=== PATIENT | male | born 1950 | race Caucasian/White ===

== ENCOUNTER 2024-07-02 11:42 | Outpatient (CLI) | payer MEDICARE, OTHER, SELFPAY ==
[2024-07-02] VITALS (24 sets, daily range): BP systolic 92–183; BP diastolic 45–81; PULSE 48–69; RESP 12–83; TEMP 36.7; O2SAT 95–100
--- NOTE | 2024-07-02 | PATH_ITS ---
[facility] Accession Number: [id number] No. of containers..04 Tissue . 01 Material submitted: . PART A: bone marrow - BONE MARROW ASPIRATION PART B: bone marrow - BONE MARROW CORE PART C: bone marrow - BONE MARROW CORE PART D: bone marrow - BONE MARROW CORE . 01 Diagnosis: BONE MARROW, ASPIRATE, CLOT, AND BIOPSY: Variably cellular marrow for the age (30-70%) in suboptimal biopsy for cellularity assessment. Trilineage left shifted hematopoiesis, adequate maturation, with proportional increased erythropoiesis with decreased megakaryopoiesis with atypical megakaryocytes forms, no definite dysplasia. Blasts: 4% by differential count. Hematogone hyperplasia. Scattered small lymphoid aggregates seen in suboptimal biopsy, not diagnostic for B cell lymphoma by morphology or immune stains. Negative for carcinoma. Storage iron is present with no ring sideroblasts seen. No increased reticulin fibrosis seen. Chromosomal analysis is pending. FISH for MDS panel is pending. PCR for IGH/IGK gene rearrangement is pending. See comment. . COMMENT: Flow cytometry of the concurrent bone marrow aspirate specimen shows: Small monotypic B-cell population present (CD5 negative, CD10 partial dim expression), which is similar to the population found in peripheral blood in previous flow cytometry evaluation. Increased hematogone population 7% of total events. No increased or aberrant blasts. (see flow report for more details [phone] and [phone]). Overall evaluation of morphology and immunophenotype of bone marrow shows left shifted marrow elements with decreased megakaryopoiesis with subset of atypical megakaryocytes seen, not diagnostic for dysplasia in suboptimal sample. Small lymphoid aggregates (with mixed T and B cells) are seen, in crushed suboptimal materials, not diagnostic for lymphoma. Although flow cytometry shows minute monotypic B cells population in bone marrow aspirate, however this population was also seen in peripheral blood therefore potential peripheral blood aspiration artifact cannot be ruled out in this specimen. Evaluation for lymphadenopathy (and obtain lymph node biopsy) or repeat bone marrow biopsy might be warranted for better assessment for lymphoma. Correlation with ordered chromosomal analysis, FISH for MDS, and PCR for IGH/IGK gene rearrangement is recommended for final interpretation. TXN 07/06/2024 1515 Local . 01 Electronically signed: . Tatonya Rubio MD, Pathologist NPI- [id number] . 01 Gross description: . A. Received in formalin with two patient identifiers and #1, are multiple red-brown fragments of hemorrhagic material aggregating to 2.1 x 0.9 x 0.1 cm. Filtered and submitted entirely in A1. B. Received in formalin with two patient identifiers and #2, are multiple fragments of osseous tissue aggregating to 0.8 x 0.7 x 0.2 cm. Filtered and submitted entirely in B1 following decalcification in Immunocal. C. Received in formalin with two patient identifiers and #3, are multiple acosta fragments of osseous tissue aggregating to 0.5 x 0.4 x 0.2 cm. Filtered and submitted entirely in C1 following decalcification in Immunocal. D. Received in formalin with two patient identifiers and no site on jar, are multiple fragments of osseous tissue aggregating to 0.6 x 0.3 x 0.2 cm. Filtered and submitted entirely in D1 following decalcification in Immunocal. ([id number]) /MRV 07/03/2024 1831 Local . 01 Microscopic: . 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 - PERIPHERAL BLOOD SMEAR: Not provided. HEMOGRAM (Per report dated 07/02/2024): WBC: 3.3x K/uL RBC: 4.0x K/uL HGB: 11.6g/dL HCT: 35.5% MCV: 87.1fL RDW: 18.6% PLT: 73x K/uL - BONE MARROW ASPIRATE SMEAR AND TOUCH PREPARATION: The aspirate is suboptimal for evaluation due hemodilution artifact, and lack of spicules. Touch preparations are adequate. Erythroid series: Present with progressive maturation, slightly left shifted. No definite dysplasia. Myeloid series: Present with left shift and unremarkable morphology. No evidence of dysplasia. Blasts are slightly increased 5%. Megakaryocytes: Present with unremarkable morphology. - BONE MARROW ASPIRATE SMEAR AND TOUCH PREPARATION MANUAL DIFFERENTIAL (200 CELLS COUNTED ON ASPIRATES and TOUCH PREPARATION): - BLASTS: 4.0% . GRANULOCYTIC SERIES: 40% Promyelocytes: 0% Neutrophilic myelocytes and metamyelocytes: 18% Segmented neutrophils and bands: 18% Eosinophils and its precursors: 3.5% Basophils and its precursors: 0.5% . ERYTHROCYTIC SERIES: 33.5% Pronormoblasts: 2% Other normoblasts: 31.5% . OTHER SERIES: 22.5% Lymphocytes: 21.0% Monocytes: 1.5% Plasma cells: 0% - BONE MARROW BIOPSY AND CLOT: Marrow biopsy is suboptimal, mostly composed of fragments of bone with occasional marrow spaces. Clot is suboptimal, predominantly composed of blood clot, and rare marrow spaces seen. M:E ratio: 1:1 by immune stains. Cellularity: Fragmented marrow biopsy suboptimal for cellularity assessment with variable cellularity range between 30-70%. Megakaryocytes: Decreased with subset has atypical morphology. Other findings: No increased numbers of immature cells, or granulomas are identified. - IMMUNOHISTOCHEMICAL STAINS ARE PERFORMED ON CORE BIOPSY TO BETTER ASSESS MARROW ELEMNTS WITH APPROPRIATE CONTROLS: CD138 shows scattered and perivascular plasma cells less than 5% of marrow cellularity and are polyclonal for kappa and lambda light chains by immune histochemical stains. CD34 shows no increased in myeloid blasts population 3%. CD117 shows increased scattered mast cells 2%, no mast cells aggregate seen. CD15 highlights proportional decreased myeloid elements. CD71 highlights erythroid elements. FACTORVIII highlights decreased megakaryocytes with subset has atypical morphology (microforms, and hypo lobulated forms) in suboptimal sample. CD3 and CD5: Highlights scattered and lymphoid aggregate of unremarkable T cells. CD20 and CD79a: Highlight scattered and occasional small aggregates of B cells. PAX5: Highlights scattered and small aggregates of B cells, and increased hematogne population. Cyclin D1 is negative in lymphocytes. BCL2: Highlights T cells. BCL6: Is negative. EMILY keratin: Is negative -- SPECIAL STAINS PERFORMED ON ASPIRATE, CLOT, AND CORE BIOPSY WITH APPROPRIATE CONTROLS: Iron special stain (clot and aspirate): Iron stainable particles are present with no ring sideroblast seen on clot sections. Reticulin special stain (core biopsy): No increased reticulin fibrosis . 01 Pathologist provided ICD-10: D69.6 . 01 CPT . 270537, 421918, 078378, 659784, 851096, 781155, 085935, 21946, 648333, 837273, 159819, 286427, [id number], [id number] Specimen Comment: A courtesy copy of this report has been sent to [facility], Specimen Comment: [phone] Performed at: [address] [id number] MD Paul Schuler MD Phone: [phone]
--- NOTE | 2024-07-02 11:45 | DI.CT.S_ITS ---
PROCEDURE: CT BIOPSY BONE DEEP Sedation analgesia for 21 minutes. INDICATIONS: SPLENOMEGALY,B-CELL LYMPHOMA,PANCYTOPENIA TECHNIQUE: The indications, alternatives, benefits, risks, and possible complications of the procedure were communicated to the patient. Informed written consent from the patient was obtained and placed in the chart. Continuous EKG and hemodynamic monitoring was started by trained personnel. The patient was brought to the CT suite and extruding press adjuster spiral CT imaging was performed with localization grid. The appropriate site for percutaneous access to the biopsy target was marked, was prepped and draped in a sterile fashion. Next, adequate local anesthesia and periosteal anaesthesia was achieved with 1% lidocaine and 0.5% bupivacaine. Under CT guidance, an 11 gauge core biopsy trocar and needle set was advanced to the biopsy target, and specimen(s) were obtained. The trocar and needle were then removed, and the patient was sent for post-procedure monitoring. COMPARISON: [place], [place], [place] PET CT FUSION SKULL 2 THIGH, 06/20/2024, 11:50. FINDINGS: Biopsy site: Right posterior iliac crest Needle: 11 gauge biopsy needle with introducer trocar. Number of passes: 4 Medications: 1% lidocaine for local anaesthesia. IV Fentanyl and Versed for conscious sedation for 21 minutes (see nursing record). Complications: None. IMPRESSION: Successful CT-guided biopsy of right posterior iliac crest. Dictated by: Mustapha Hansen M.D. on 07/04/2024 at 8:19 Approved by: Mustapha Hansen M.D. on 07/04/2024 at 8:21
[2024-07-02 12:50] LABS: Hematocrit 35.5 % (41-53); Hemoglobin 11.6 g/dL (13.5-17.5); Mean Corpuscular HGB Conc 32.8 % (30-36); Mean Corpuscular Hemoglobin 28.6 PG (26-34); Mean Corpuscular Volume 87.1 fL (80-100); Platelet Count 73 X10^3/uL (150-400); Red Blood Cell Count 4.07 X10^6/uL (4.5-5.9); Red Cell Distribution Width 18.6 % (11.6-14.8); White Blood Cell Count 3.3 X10^3/uL (4.5-11.0)
[2024-07-02 12:58] LABS: INR 1.1 (0.9-1.3); Prothrombin Time 12.7 SECONDS (9.4-12.5)
[2024-07-02] MEDS: MIDAZOLAM 2 MG/2 ML VIAL 1 MG IV (13:53)
[2024-07-02] MEDS: LIDOCAINE 1% 20 ML 15 ML INJ (13:55)
[2024-07-02] MEDS: BUPIVACAINE 0.5% MDV 50 ML INJ (13:56)
[2024-07-02] MEDS: fentaNYL 100 MCG/2 ML INJ 25 MCG IV (15:08)
== END 2024-07-02 14:35 | disposition home or self-care (01) ==
LOC: CT 11:44
PROVIDERS: Radiology Diagnostic Radiology; Referring Provider Internal Medicine Medical Oncology; Visit Provider Internal Medicine Medical Oncology
DX: C18.9 Malignant neoplasm of colon, unspecified (principal); C64.1 Malignant neoplasm of right kidney, except renal pelvis; C85.10 Unspecified B-cell lymphoma, unspecified site; D69.6 Thrombocytopenia, unspecified; R16.1 Splenomegaly, not elsewhere classified; D61.818 Other pancytopenia
CPT/HCPCS: 20225; 77012; 85027; 85610; J2250; J3010